=== PATIENT | female | born 1930 | race Caucasian/White ===

== ENCOUNTER 2016-03-26 03:00 | Emergency (ER) | payer MEDICARE | END 2016-03-26 07:01 | disposition home or self-care (01) | LOC: ER 03:00 | DX: F15.951 Other stimulant use, unspecified with stimulant-induced psychotic disorder with hallucinations (principal); R41.0 Disorientation, unspecified; Z79.899 Other long term (current) drug therapy | CPT/HCPCS: 36415; 70450; 80053; 80307; 81003; 83605; 84439; 84443; 85025; 87040; 93005 ==